=== PATIENT | male | born 1950 | race Caucasian/White ===

== ENCOUNTER 2021-08-02 13:45 | Emergency (ER) | payer OTHER ==
[~2021-08-02] VITALS: Ht 193 cm; Wt 102.7 kg
[2021-08-02] MEDS ORDERED: CLIN-95 PO (14:59)
[2021-08-02] MEDS ORDERED: HYDR-2155 PO (14:59)
[2021-08-02] MEDS ORDERED: IBUPROFEN 600 MG TABLET. PO ONE (15:00)
--- NOTE | 2021-08-02 15:10 | PHYS DOC ---
Past History Additional Past Medical Histor: chronic diarrhea (HEAVENLY AHUMADA APRN) Past Surgical History: Cholecystectomy, Other Additional Past Surgical Histo: L arm, L wrist, L shoulder, R hip fx repairs; bilat carpal tunnel repair (HEAVENLY AHUMADA APRN) Alcohol Use: Occasionally (HEAVENLY AHUMADA APRN) General Adult EDM: Chief Complaint: ELBOW PROBLEM HPI: HPI: Patient is a male presents with swelling, redness, tenderness to right elbow. Denies injury. Patient states that its been tender for the last couple of days. Patient took ibuprofen with some relief. Pain is worse with arm movement. Denies medical history. (HEAVENLY AHUMADA APRN) Review of Systems: Review of Systems: Constitutional: Denies fever or chills Eyes: Denies change in visual acuity HENT: Denies nasal congestion or sore throat Respiratory: Denies cough or shortness of breath Cardiovascular: Denies chest pain or edema GI: Denies abdominal pain, nausea, vomiting, bloody stools or diarrhea : Denies dysuria Musculoskeletal: Denies back pain or joint pain Integument: Denies rash Neurologic: Denies headache, focal weakness or sensory changes Endocrine: Denies polyuria or polydipsia Lymphatic: Denies swollen glands Psychiatric: Denies depression or anxiety (HEAVENLY AHUMADA APRN) Allergies: Allergies: Allergies Coded Allergies Type Severity Reaction Last Updated Verified No Known Drug Allergies 08/02/21 No (HEAVENLY AHUMADA APRN) Physical Exam: PE: Constitutional: Well developed, well nourished, no acute distress, non-toxic appearance. [] HENT: Normocephalic, atraumatic, bilateral external ears normal, oropharynx moist, no oral exudates, nose normal. [] Eyes: PERRLA, EOMI, conjunctiva normal, no discharge. [] Neck: Normal range of motion, no tenderness, supple, no stridor. [] Cardiovascular:Heart rate regular rhythm, no murmur [] Lungs & Thorax: Bilateral breath sounds clear to auscultation [] Abdomen: Bowel sounds normal, soft, no tenderness, no masses, no pulsatile masses. [] Skin: Warm, red, swollen, tender Back: No tenderness, no CVA tenderness. [] Extremities: Right elbow tenderness, ROM intact, no edema. [] Neurologic: Alert and oriented X 3, normal motor function, normal sensory fun ction, no focal deficits noted. [] Psychologic: Affect normal, judgement normal, mood normal. [] (HEAVENLY AHUMADA APRN) Current Patient Data: Vital Signs: Vital Signs Date Time Temp Pulse Resp B/P (MAP) Pulse Ox O2 Delivery O2 Flow Rate FiO2 08/02/21 13:45 99.3 94 18 165/89 (114) 95 Room Air (HEAVENLY AHUMADA APRN) EKG: EKG: [] (HEAVENLY AHUMADA APRN) Radiology/Procedures: Radiology/Procedures: [] (HEAVENLY AHUMADA APRN) Heart Score: C/O Chest Pain: No Risk Factors: Risk Factors: DM, Current or recent (<one month) smoker, HTN, HLP, family hist ory of CAD, obesity. Risk Scores: Score 0 - 3: 2.5% MACE over next 6 weeks - Discharge Home Score 4 - 6: 20.3% MACE over next 6 weeks - Admit for Clinical Observation Score 7 - 10: 72.7% MACE over next 6 weeks - Early Invasive Strategies (HEAVENLY AHUMADA APRN) Course & Med Decision Making: Course & Med Decision Making Pertinent Labs and Imaging studies reviewed. (See chart for details) [] 71-year-old male presents with right elbow swelling, tenderness, redness. Unknown fever. Afebrile on arrival. Attempted to drain fluid from elbow but minimal amount of serous sanguinous removed. Elbow was wrapped to help with swelling. Patient sent home with clindamycin. Advised patient to take the an tibiotic as directed and in full. Ibuprofen for breakthrough pain. Patient also given hydrocodone. Discussed return precautions. Follow-up with PCP advised. (HEAVENLY AHUMADA APRN) Dragon Disclaimer: Dragon Disclaimer: This electronic medical record was generated, in whole or in part, using a voice recognition dictation system. (HEAVENLY AHUMADA APRN) Attending Co-Sign The patient was seen and interviewed as well as examined at the bedside. The chart was reviewed. The case was discussed. Agree with the plan of care. (EMELY ALEGRIA DO) Departure Departure: Impression: Primary Impression: Bursitis Qualified Codes: M70.31 - Other bursitis of elbow, right elbow Disposition: HOME / SELF CARE / HOMELESS Condition: STABLE Referrals: PCP,UNKNOWN (PCP) Patient Instructions: Cellulitis, [id number] Additional Instructions: You are seen the emergency room for swelling to your right elbow. Attempted to drain fluid. Sending you home with an antibiotic along with pain medication. Follow-up with your PCP if symptoms or not improving in the next 48 to 72 hours. Return to emergency room if you have worsening symptoms or concerns such as uncontrolled fever, nausea vomiting. EMERGENCY DEPARTMENT GENERAL DISCHARGE INSTRUCTIONS Thank you for coming to [facility] (ED) today and trusting us with you care. We trust that you had a positivie experience in our Emergency Department. If you wish to speak to the department management, you may call the director at [phone]. YOUR FOLLOW UP INSTRUCTIONS ARE FOLLOWS: 1. Do you have a private Doctor? If you do not have a private doctor, please ask for a resource list of physicians or clinics that may be able to assist you with follow up care. 2. The Emergency Physician has interpreted your x-rays. The X-Ray specialist will also review them. If there is a change in the findings, you will be notified in 48 hours when at all possible. 3. A lab test or culture has been done, your results will be reviewed and you w ill be notified if you need a change in treatment. ADDITIONAL INSTRUCTIONS AND INFORMATION: 1. Your care today has been supervised by a physician who is specially trained in emergency care. Many problems require more than one evaluation for a complete diagnosis and treatment. We recommend that you schedule your follow up appointment as recommended to ensure complete treatment of you illness or injury. If you are unable to obtain follow up care and continue to have a problem, or if your condition worsens, we recommend that you return to the ED. 2. We are not able to safely determine your condition over the phone nor are we able to give sound medical advice over the phone. For these safety reasons, if you call for medical advice we will ask you to come to the ED for further evaluation. 3. If you have any questions regarding these discharge instructions please call the ED at [phone]. SAFETY INFORMATION: In the interest of safety, wellness, and injury prevention; we encourage you to wear your sealbelt, if you smoke; quite smoking, and we encourage family to use a protective helmet for bicycling and other sporting events that present an increased risk for head injury. IF YOUR SYMPTOMS WORSEN OR NEW SYMPTOMS DEVELOP, OR YOU HAVE CONCERNS ABOUT YOUR CONDITION; OR IF YOUR CONDITION WORSENS WHILE YOU ARE WAITING FOR YOUR FOLLOW UP APPOINTMENT; EITHER CONTACT YOUR PRIMARY CARE DOCTOR, THE PHYSICIAN WHOSE NAME AND NUMBER YOU WERE GIVEN, OR RETURN TO THE ED IMMEDIATELY. Scripts Hydrocodone Bit/Acetaminophen (HYDROCODONE-APAP 5-325 ) 1 Each Tablet 1-2 TAB PO PRN Q6HRS PRN for PAIN for 3 Days, #12 TAB 0 Refills Prov: HEAVENLY AHUMADA APRN 08/02/21 Clindamycin Hcl (CLINDAMYCIN HCL) 300 Mg Capsule 1 CAP PO BID for cellulititis for 7 Days, #14 CAP Prov: HEAVENLY AHUMADA APRN 08/02/21 HEAVENLY AHUMADA APRN Aug 02, 2021 15:10 EMELY ALEGRIA DO August 06, 2021 06:11
[2021-08-02 15:34] VITALS: BP 158/90
== END 2021-08-02 15:35 | disposition home or self-care (01) ==
LOC: ER 13:45
DX: M70.31 Other bursitis of elbow, right elbow (principal)
CPT/HCPCS: 20605; 99284